=== PATIENT | male | born 1965 | race Caucasian/White ===

== ENCOUNTER → 2024-02-11 | Outpatient (CLI) | payer BC ==
--- NOTE | 2024-02-11 11:57 | CA ---
Exercise Stress Test Report Name: Nithin Espinosa Exam Date: 02/11/2024 10:37 Exam Location: [place] Stress Ht (in): 74 Wt (lb): 210 BSA: 2.22 Ordering Phys: Derek Delgado DO Referring Phys: Melissa Cruz Technologist: [email or web address] Age: 58 Gender: M : 1965 Procedure CPT: Indications: R06.00 DYSPNEA I10 HTN J44.1 CHRON OBSTRUC PULM DI ICD-10 Codes: Patient History: Shortness of breath for one year. Medications: Meds past 24 hrs: Pretest Chest Pain: STRESS TEST Andrea Protocol Exercise Duration (min:sec): 05:[address] Depressions (mm): Angina Score: Garcia Score: Resting HR (bpm): 76 Peak HR (bpm): 139 Resting BP (mmHg): 117 / 96 Peak BP (mmHg): 197 / 99 MPHR: 161 Target HR: 137 % MPHR: 86 METS: 7.1 Total Dose: Peak Dose: Atropine: Double Product: 67338 BP Response: Stress Termination: Dyspnea Stress Symptoms: Dyspnea Stress Summary: ECG ANALYSIS Resting ECG: Stress ECG: CONCLUSIONS Baseline EKG revealed normal sinus rhythm with IVCD of LBBB type. Patient walked on a standard Andrea protocol for a total duration of 5 minutes 26 seconds and achieved a maximal heart rate of 139 bpm complained of dyspnea no anginal symptoms. No chest pain. EKG remained inconclusive. Isolated PVCs and rare couplets were noted. This is an inconclusive stress test by EKG criteria. For patients with left bundle I would recommend that we should do a Lexiscan stress test Dr. Nila Tolliver MD (Electronically Signed) Final Date: 11 February 2024 11:56
--- NOTE | 2024-02-11 13:27 | CTL ---
EXAMINATION TYPE: CT Low Dose Lung DATE OF EXAM ORDERED: 02/11/2024 HISTORY: 58-year-old male R06.00 DYSPNEA I10 HTN J44.1 CHRON OBSTRUC PULM DI. Current smoker with 65 pack-year history. Lung cancer screening CT DLP: 115.[address] CTDI: 2.8 mGy Automated exposure control for dose reduction was used. SCREENING VISIT: Baseline COMPARISON: None TECHNIQUE: Low dose computed tomography scan was performed through the chest at 1 mm thick sections a nd reconstructed images in multiple planes at 1 mm and [address] DIAGNOSTIC QUALITY: Satisfactory FINDINGS: Heart is normal size without pericardial effusion. LAD and RCA coronary calcifications are present. Ectatic aortic root at 3.8 cm. Mild atherosclerotic arch calcifications. Bovine configuration to the aortic arch. Possible moderate to severe atherosclerotic narrowing at the origin of the left subclavi an artery, axial image 21. No thoracic lymphadenopathy by CT size criteria. There is strandy atelectasis or scarring in the lower lungs. Mild diffuse bronchial wall thickening. Moderate to advanced emphysematous changes throughout the lungs. No consolidation or pleural effusion . No suspicious pulmonary nodules Visualized upper abdomen shows no gross abnormality. Bones: Mild degenerative disc disease mid to lower thoracic spine. IMPRESSION: 1. LungRADS 1, negative. No suspicious pulmonary nodules. 2. COPD with moderately advanced emphysema. Recommend smoking cessation. 3. LAD and RCA coronary artery calcifications. CT LUNG RAD AND CT CHEST RECOMMENDATION: Lung-Rad 1 Negative: Continue annual screening with LDCT in 12 months. S Modifier (other clinically significant findings): None
--- NOTE | 2024-02-12 11:19 | CA ---
Transthoracic Echo Report Name: Nithin Espinosa Age: 58 Gender: M : 1965 Exam Date: 02/11/2024 11:55 Exam Location: [place] Echo Ht (in): 74 Wt (lb): 210 Ordering Physician: Derek Delgado DO Attending/Referring Phys: Melissa Cruz PAC Liquefier Millie Fernandez RDCS Procedure CPT: Indications: R06.00 DYSPNEA I10 HTN J44.1 CHRON OBSTRUC PULM DI Cardiac Hx: Technical Quality: Fair Contrast 1: Total Dose (mL): Contrast 2: Total Dose (mL): MEASUREMENTS (Male / Female) Normal Values 2D ECHO LV Diastolic Diameter PLAX 5.2 cm 4.2 - 5.9 / 3.9 - 5.3 cm LV Systolic Diameter PLAX 3.6 cm IVS Diastolic Thickness 1.2 cm 0.6 - 1.0 / 0.6 - 0.9 cm LVPW Diastolic Thickness 1.0 cm 0.6 - 1.0 / 0.6 - 0.9 cm LV Relative Wall Thickness 0.4 LVOT Diameter 2.5 cm LV Diastolic Volume MOD 4C 130.5 cm??? LV Systolic Volume MOD 4C 88.1 cm??? LV Ejection Fraction MOD 4C 32.5 % LV Cardiac Index MOD 4C 1343.9 cm???/min???m??? LV Diastolic Length 4C 8.8 cm LV Systolic Length 4C 8.4 cm LA Volume 38.5 cm??? 18 - 58 / 22 - 52 cm??? LA Volume Index 17.2 cm???/m??? 16 - 28 cm???/m??? DOPPLER AV Peak Velocity 138.8 cm/s AV Peak Gradient 7.7 mmHg AV Mean Velocity 106.1 cm/s AV Mean Gradient 4.8 mmHg AV Velocity Time Integral 25.2 cm LVOT Peak Velocity 126.1 cm/s LVOT Peak Gradient 6.4 mmHg LVOT Velocity Time Integral 23.9 cm LVOT Stroke Volume 118.1 cm??? LVOT Stroke Volume Index 53.2 ml/m??? LVOT Cardiac Index 3740.1 cm???/min???m??? AV Area Cont Eq vti 4.7 cm??? AV Area Cont Eq pk 4.5 cm??? MV Area PHT 2.8 cm??? Mitral E Point Velocity 48.3 cm/s Mitral A Point Velocity 68.0 cm/s Mitral E to A Ratio 0.7 MV Deceleration Time 267.9 ms PV Peak Velocity 115.4 cm/s PV Peak Gradient 5.3 mmHg FINDINGS Left Ventricle Left ventricular ejection fraction is estimated at 50-55 %. Mildly increased septal wall thickness. Left ventricular cavity size normal. No obvious regional wall motion abnormalities. Right Ventricle Normal right ventricular size and function. Unable to estimate the right ventricular systolic pressure. Right Atrium Normal right atrial size. Left Atrium Normal left atrial size. Mitral Valve Structurally normal mitral valve. No mitral stenosis, regurgitation or prolapse. Aortic Valve Trileaflet aortic valve. No aortic valve stenosis or regurgitation. Tricuspid Valve Structurally normal tricuspid valve. No tricuspid stenosis. No tricuspid regurgitation. Pulmonic Valve Structurally normal pulmonic valve. No pulmonic stenosis. No pulmonic regurgitation. Pericardium No pericardial effusion. Aorta Aortic annulus normal. CONCLUSIONS Normal LV size, fair systolic function. No significant abnormality on the Doppler exam. No pericardial effusion Previewed by: Dr. Nila Tolliver MD (Electronically Signed) Final Date: 12 February 2024 11:18
== END | disposition home or self-care (01) ==
LOC: RADNMMAIN 10:07
PROVIDERS: ATTEND Family Medicine
DX: Z12.2 Encounter for screening for malignant neoplasm of respiratory organs (principal); I25.10 Atherosclerotic heart disease of native coronary artery without angina pectoris; J44.1 Chronic obstructive pulmonary disease with (acute) exacerbation; J43.9 Emphysema, unspecified; I44.7 Left bundle-branch block, unspecified; I10 Essential (primary) hypertension; E78.2 Mixed hyperlipidemia; R06.00 Dyspnea, unspecified; F17.200 Nicotine dependence, unspecified, uncomplicated
CPT/HCPCS: 71271; 93017; 93306

== ENCOUNTER → 2024-07-05 | Outpatient (CLI) | payer BC ==
[2024-07-05 15:15] LABS: HCT 48.3 % (39.6-50.0); MCH 28.8 pg (27.0-32.0); MCHC 33.1 g/dL (32.0-37.0); NRBC Per 100 WBC 0 X 10*3/uL (0.00-0.01); Platelet Count 224 X 10*3/uL (140-440); RBC 5.55 X 10*6/uL (4.40-5.60); RDW 13.8 % (11.5-14.5); WBC 7.26 X 10*3/uL (4.50-10.00)
[2024-07-05 15:49] LABS: BUN/Creat Ratio 13.86 Ratio (12.00-20.00); Blood Urea Nitrogen 9.7 mg/dL (9.0-27.0); Chloride 104 mmol/L (96-109); Chol/HDL Ratio 2.75 Ratio; Glucose 101 mg/dL (70-110); LDL Cholesterol,Calculated 58.2 mg/dL (0.0-131.0); NT-Pro-B-Type Natriuretic Pept 251 pg/mL (0-125); Potassium 4.8 mmol/L (3.5-5.5); Sodium 140 mmol/L (135-145); VLDL Calculation 15.56 mg/dL (5.00-40.00)
[2024-07-05 15:50] LABS: ALT 17 U/L (10-49); AST 14 U/L (14-35); Calcium 10.1 mg/dL (8.7-10.3); Carbon Dioxide 24.5 mmol/L (21.6-31.8)
== END | disposition home or self-care (01) ==
LOC: LABWHC1 10:13
PROVIDERS: ATTEND Internal Medicine Cardiovascular Disease
DX: E78.2 Mixed hyperlipidemia (principal); R06.02 Shortness of breath
CPT/HCPCS: 36415; 80048; 80061; 83880; 84450; 84460; 85027